=== PATIENT | female | born 1995 | race Caucasian/White ===

== ENCOUNTER 2019-04-15 12:12 | Emergency (ER) | payer OTHER ==
[~2019-04-15] VITALS: Ht 165.1 cm; Wt 97.5 kg
[2019-04-15] MEDS ORDERED: NORLYDA0.35 MG PO (12:28)
[2019-04-15] MEDS ORDERED: IBUPROFEN 800800 M1 PO (13:20)
[2019-04-15 13:57] VITALS: BP 120/72
== END 2019-04-15 13:58 | disposition home or self-care (01) ==
LOC: M.ERS 12:12
DX: S63.292A Dislocation of distal interphalangeal joint of right middle finger, initial encounter (principal); X58.XXXA Exposure to other specified factors, initial encounter; Y93.89 Activity, other specified; Y92.89 Other specified places as the place of occurrence of the external cause; Y99.8 Other external cause status